=== PATIENT | male | born 1995 | race Two or more races ===

== ENCOUNTER 2020-06-06 00:36 | Emergency (ER) | payer MEDICAID ==
[~2020-06-06] VITALS: Ht 188 cm; Wt 61.3 kg
[2020-06-06 00:43] VITALS: BP 111/85
[2020-06-06] MEDS ORDERED: LIDOCAINE-MPF 1%, 5ML ONE (00:52)
[2020-06-06] MEDS ORDERED: LIDOCAINE-MPF 1%, 5ML INFIL ONE (01:30)
[2020-06-06] MEDS ORDERED: IBUPROFEN 600 MG TABLET ONE (01:41)
[2020-06-06] MEDS ORDERED: IBUPROFEN 600 MG TABLET PO ONE (02:00)
[2020-06-06] MEDS ORDERED: NEOSPORIN OINT. PKT 1 PACKET ONE (03:03)
== END 2020-06-06 03:19 | disposition home or self-care (01) ==
LOC: ED 03:00
DX: S01.81XA Laceration without foreign body of other part of head, initial encounter (principal); S50.312A Abrasion of left elbow, initial encounter; S60.812A Abrasion of left wrist, initial encounter; S60.512A Abrasion of left hand, initial encounter; F17.210 Nicotine dependence, cigarettes, uncomplicated; W01.0XXA Fall on same level from slipping, tripping and stumbling without subsequent striking against object, initial encounter; Y93.51 Activity, roller skating (inline) and skateboarding; Y92.410 Unspecified street and highway as the place of occurrence of the external cause; Y99.8 Other external cause status
CPT/HCPCS: 12013; 99406